=== PATIENT | female | born 1995 | race Caucasian/White ===

== ENCOUNTER 2016-12-29 19:10 | Emergency (ER) | payer BC ==
[2016-12-29] MEDS ORDERED: Lidocaine 1% 10 MG/ML - 20 ML VIAL SUBCUT ONE (19:12)
[2016-12-29 19:17] VITALS: RESP 16; TEMP 97.5
[2016-12-29] MEDS ORDERED: DIPH,PERTUSS,TET(ADACEL) VAC/PF 0.5 ML (Tdap) IM ONE (20:05)
--- NOTE | 2016-12-29 22:40 | PDOC ---
Hand / Wrist Injury HPI - General Chief Complaint: Laceration / Wound Stated Complaint: CUT TO LEFT INDEX FINGER Date Seen by Provider: 12/29/16 Time Seen by Provider: 19:15 Source: POSITIVE: Patient Exam Limitations: POSITIVE: No limitations Nurse's Notes Reviewed & Considered: Yes - History of Present Illness Initial Comments: The patient is a 21-year-old female who presents to the emergency department with a laceration to her left index finger. She states that she was doing some dishes when she cut her left index finger on a knife that was obscured in the soapy water. She denies any other associated injuries or complaints. She has not had a tetanus shot since she was in school. Have you received a tetanus shot in the past 10 years?: Yes - Patient Home Medications Home Medications: Home Medications Methylphenidate HCl [Concerta] 18 mg PO DAILY 12/29/16 - Patient Allergies Allergies/Adverse Reactions: Allergies Allergy/AdvReac Type Severity Reaction Status Date / Time Adhesive Bandage Allergy Intermediate RASH Verified 12/29/16 19:12 *RETIRED-06/24/12 [Adhesive Bandage *RETIRED-12/16/12] latex Allergy Intermediate RASH Verified 12/29/16 19:12 Past Medical History - heen HEENT History: Denies History Cardiovascular History: Arrhythmia Additional Cardiovasular History: HX OF PSVT Respiratory History: Denies History Gastrointestinal History: GERD Genitourinary History: Denies History Endocrine History: Hypothyroidism, Other (please comment) Additional Endocrine History: GLORIA DISEASE Musculoskeletal History: Other (please comment) Prosthesis or Implant: No Additional Musculoskeletal History: KNEE PAIN, GOING THROUGH TESTING FOR RHEUMATOID Neurological History: Denies History Blood Disorders: Denies History Psychiatric History: ADHD History of Sexually Transmitted Diseases: No Female Reproductive History: Denies History Obstetrical History: Denies History Cancer History: Denies History In Past Year Been Physically Harmed or Verbally Threatened: No History of MDRO: No History of Other Communicable Diseases: 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, LIPS) Tobacco Use: Never Smoker Alcohol Use: None Substance Use Type: None Previous Surgical History: Yes Type / Date of Surgery: MYRINGOSTOMIES/ T&A/ RIGHT 5TH FINGER / ABCESS TOOTH, SURGERY AGE 8, RIGHT KNEE SCOPE Anesthesia Reactions: No Malignant Hyperthermia: No Significant Family History: Diabetes Past Medical History Reviewed: Reviewed - No Changes ROS - Limitations ROS Limitations: No Limitations (Review of systems otherwise noncontributory) Hand / Wrist Injury Exam - General Appearance General Appearance: POSITIVE: Alert, Cooperative, No Acute Distress - Extremities Upper Extremity: POSITIVE: Other (examination left index finger does reveal approximately a 1.5 cm laceration to the tip of the finger, she has good cap refill and sensation distally, tendon function is normal) Neurovascular / Tendon: POSITIVE: Sensation Normal, Motor Normal, No Vascular Compromise, Tendon Function Normal Procedure - Laceration/Wound Repair Site of Lac/Wound:: Left index finger Wound Length (cm): 1.5 Wound's Depth, Shape: Into subcutaneous tissue, Linear Skin Prep: Betadine Prep Local Anesthesia Used - Indicate Amt Used in Comment: Lidocaine 1%: Yes ( digital block) Wound Explored: Clean Wound Repaired With: Sutures single layer Suture Size/Type: 5:0, Ethilon Number of Sutures: 4 Hand / Wrist Injury Progress - Patient's Progress MDM / ED Course: The laceration was repaired and wound care instructions were discussed. The patient is advised return if increased bleeding or sign of infection. Follow- up for suture removal in 10 days. - Consult Counseled: POSITIVE: Patient, RE: DX, RE: Need for F/U Patient Care Time - Estimated PCT Patient Care Time (In Minutes): 20 Vital Signs - Recent Vital Signs Vital Signs: Vital Signs (Last 8 hours) Temp Pulse Resp BP Pulse Ox 12/29/16 19:10 97.5 F 93 16 114/88 99 - VS Reviewed Vital Signs Reviewed: Yes Discharge Clinical Impression: Finger laceration Condition: Stable Patient Instructions Given at Discharge: Laceration (ED) Additional Instructions: Keep the dressing in place for the first 24 hours. After this you can place a small amount of antibiotic ointment on the wound and cover with a Band-Aid during the day and leave open at night. Return to the emergency room if increased pain or swelling, drainage from the wound or other sign of infection. Sutures should be removed in 10 days. Follow Up With: VINOD KHLAIL [Primary Care Provider] -
== END 2016-12-29 20:20 | disposition home or self-care (01) ==
LOC: ER 19:10
DX: S61.211A Laceration without foreign body of left index finger without damage to nail, initial encounter (principal); W26.0XXA Contact with knife, initial encounter; Y93.G1 Activity, food preparation and clean up
CPT/HCPCS: 12001; 90471; 99282; J2001